=== PATIENT | male | born 1955 | race Caucasian/White ===

== ENCOUNTER 2018-01-07 06:37 | Day surgery (SDC) | payer MEDICARE ==
[2018-01-06 12:03] VITALS: BMI 25.0
[2018-01-07] MEDS ORDERED: Metoprolol Tartrate 5 MG/5 ML VIAL ONE (07:49)
--- NOTE | 2018-01-07 10:35 | OP ---
DATE OF PROCEDURE: 01/07/2018 SURGEON: Dr. Renato Montelongo PROCEDURE: Colonoscopy. PREOPERATIVE DIAGNOSIS: Colon cancer screening. PROCEDURE IN DETAIL: Informed consent was obtained from the patient. The patient was sedated with t otal intravenous anesthesia. The rectal exam was performed and was normal. The colonoscope was adva nced to the cecum where the ileocecal valve and appendiceal orifice were clearly identified. The pre paration quality was good. There was severe diverticulosis throughout the colon. The remainder of t colonic mucosa was normal. Retroflexed views in the rectum were normal. IMPRESSION: 1. Severe diverticulosis throughout the colon. 2. Otherwise normal colonoscopy. RECOMMENDATIONS: Repeat colon cancer screening in 10 years.
[2018-01-07] MEDS ORDERED: PROPOFOL 200 MG/20 ML VIAL ONE (15:32)
[2018-01-07] MEDS ORDERED: ePHEDrine/0.9% NaCl/PF SYRINGE 50 mg/10 ml ONE (15:32)
--- NOTE | 2018-01-08 06:09 | EKG ---
Test Reason : PREOP Blood Pressure : / mmHG Vent. 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
== END 2018-01-07 10:15 | disposition home or self-care (01) ==
LOC: SDC 06:37
PROVIDERS: ATTEND Internal Medicine Gastroenterology
PROC: 0DJD8ZZ Inspection of Lower Intestinal Tract, Via Natural or Artificial Opening Endoscopic (ICD-10-PCS; principal; 2018-01-07)
DX: Z12.11 Encounter for screening for malignant neoplasm of colon (principal); K57.30 Diverticulosis of large intestine without perforation or abscess without bleeding; K21.9 Gastro-esophageal reflux disease without esophagitis; G89.29 Other chronic pain; E78.5 Hyperlipidemia, unspecified; E11.9 Type 2 diabetes mellitus without complications; I50.9 Heart failure, unspecified; I25.2 Old myocardial infarction; I25.10 Atherosclerotic heart disease of native coronary artery without angina pectoris; Z88.5 Allergy status to narcotic agent; Z79.82 Long term (current) use of aspirin; Z79.84 Long term (current) use of oral hypoglycemic drugs; Z79.899 Other long term (current) drug therapy; Z98.890 Other specified postprocedural states
CPT/HCPCS: 93005; G0121; 93010; J2704

== ENCOUNTER 2018-11-04 14:04 | Emergency (ER) | payer MEDICARE ==
--- NOTE | 2018-11-04 14:56 | RAD ---
RIGHT ELBOW 4 VIEWS: Date: 11/04/18 HISTORY: Injury. 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 No evidence for acute fracture or dislocation. POS: [facility]
== END 2018-11-04 15:26 | disposition home or self-care (01) ==
LOC: ERS 14:04
DX: M77.11 Lateral epicondylitis, right elbow (principal); E11.9 Type 2 diabetes mellitus without complications; Z87.891 Personal history of nicotine dependence; Z79.82 Long term (current) use of aspirin; Z79.84 Long term (current) use of oral hypoglycemic drugs; Z79.02 Long term (current) use of antithrombotics/antiplatelets; Z79.899 Other long term (current) drug therapy

== ENCOUNTER 2019-04-29 12:11 | Emergency (ER) | payer MEDICARE ==
[2019-04-29] MEDS ORDERED: Ketorolac Tromethamine 30 MG/ML VIAL ONE (13:43)
[2019-04-29] MEDS ORDERED: Diazepam 10 MG/2 ML SYRINGE ONE (13:43)
[2019-04-29 13:50] LABS: Bilirubin Negative (Negative); Blood, Urine Negative (Negative); Clarity Clear (Clear); Glucose, Urine (Dipstick) Normal (Negative); Leukocyte Negative Leu/uL (Negative); Nitrite Negative (Negative); Protein, Urine (Dipstick) Negative (Neg-Trace); Urobilinogen Normal mg/dL (Less than 2)
== END 2019-04-29 14:30 | disposition home or self-care (01) ==
LOC: ERS 12:11
DX: M54.5 Low back pain (principal); I25.2 Old myocardial infarction; E11.9 Type 2 diabetes mellitus without complications; Z87.891 Personal history of nicotine dependence; Z79.899 Other long term (current) drug therapy; Z79.01 Long term (current) use of anticoagulants; Z79.84 Long term (current) use of oral hypoglycemic drugs
CPT/HCPCS: 81003; 96374; 96375; J1885; J3360

== ENCOUNTER 2021-07-05 09:05 | Outpatient (CLI) | payer MEDICARE | END 2021-07-05 09:06 | disposition home or self-care (01) | LOC: ULT 09:05 | PROVIDERS: ATTEND Internal Medicine Cardiovascular Disease | DX: E04.1 Nontoxic single thyroid nodule (principal) | CPT/HCPCS: 76536 ==

== ENCOUNTER 2022-04-10 08:31 | Outpatient (CLI) | payer MEDICARE | END 2022-04-10 08:32 | disposition home or self-care (01) | LOC: BICCT 08:31 | PROVIDERS: ATTEND Specialist | DX: R10.2 Pelvic and perineal pain (principal); R59.0 Localized enlarged lymph nodes; K57.30 Diverticulosis of large intestine without perforation or abscess without bleeding; I70.0 Atherosclerosis of aorta; I70.8 Atherosclerosis of other arteries | CPT/HCPCS: 74177; 82565 ==

== ENCOUNTER 2023-03-12 15:20 | Emergency (ER) | payer MEDICARE ==
[2023-03-12] MEDS ORDERED: Morphine 4 MG/ML VIAL ONE (16:28)
[2023-03-12 16:58] LABS: Bacteria/HPF None Seen HPF (None Seen); Bilirubin Negative (Negative); Blood, Urine Negative (Negative); CAUTI Indications for Culture Pelvic or flank pain; Clarity Clear (Clear); Glucose, Urine (Dipstick) Normal (Negative); Ketone, Urine Negative (Negative); Leukocyte Negative Leu/uL (Negative); Nitrite Negative (Negative); Protein, Urine (Dipstick) Negative (Neg-Trace); RBC/HPF 0-3 HPF (0-3); Specific Gravity, Urine 1.015 (1.002-1.036); Squamous Epithelial None Seen HPF (0-3); Urobilinogen Normal mg/dL (Less than 2); WBC/HPF 0-3 HPF (0-3)
[2023-03-12 17:13] LABS: Urine Culture Reflex No No
[2023-03-12] MEDS ORDERED: Ketorolac Tromethamine 30 MG/ML VIAL ONE (18:04)
== END 2023-03-12 18:58 | disposition home or self-care (01) ==
LOC: ERS 15:20
DX: M54.50 Low back pain, unspecified (principal); I10 Essential (primary) hypertension; E11.9 Type 2 diabetes mellitus without complications; Z87.891 Personal history of nicotine dependence
CPT/HCPCS: 70450; 72131; 81001; 96374; 96375; J1885; J2270

== ENCOUNTER 2023-06-19 08:54 | Outpatient (CLI) | payer MEDICARE ==
[2023-06-19] MEDS ORDERED: Magnevist 469MG/ML 20 ML VIAL ONE (12:04)
== END 2023-06-19 08:55 | disposition home or self-care (01) ==
LOC: MRI 08:54
PROVIDERS: ATTEND Neurological Surgery
DX: M47.816 Spondylosis without myelopathy or radiculopathy, lumbar region (principal); R60.0 Localized edema
CPT/HCPCS: 71046; 72100; 72158; A9579

== ENCOUNTER → 2023-06-24 | Outpatient (CLI) | payer MEDICARE | LOC: EDSTATUS 14:50 → RAD 19:57 | PROVIDERS: ATTEND Neurological Surgery | DX: M47.816 Spondylosis without myelopathy or radiculopathy, lumbar region (principal); M43.16 Spondylolisthesis, lumbar region | CPT/HCPCS: 72100 ==

== ENCOUNTER 2023-10-14 14:14 | Outpatient (CLI) | payer MEDICARE | END 2023-10-14 14:15 | disposition home or self-care (01) | LOC: BICULT 14:14 | PROVIDERS: ATTEND Internal Medicine Cardiovascular Disease | DX: E04.1 Nontoxic single thyroid nodule (principal) | CPT/HCPCS: 76536 ==

== ENCOUNTER 2024-01-13 09:33 | Observation (INO) | payer MEDICARE ==
[2024-01-13 10:28] LABS: #Basophils Less than 0.03 10x3/uL (0.0-0.2); %Basophils 0.3 % (0.0-1.0); %Eosinophils 2.4 % (0.0-10.0); %Lymphocytes 40.4 % (21.0-51.0); %Monocytes 7.2 % (0.0-10.0); %Neutrophils 49.3 % (42.0-75.0); Hematocrit 39.8 % (42.0-52.0); Hemoglobin 14.1 g/dL (14.0-18.0); Mean Corpuscular HGB CONC 35.4 g/dL (32.0-36.0); Mean Corpuscular Hemoglobin 31.5 pg (27.0-31.0); Mean Platelet Volume 10.4 fL (7.4-10.4); Platelet Count 156 10x3/uL (130-400); RBC Distribution Width 12.2 % (11.5-14.5); Red Blood Cell (RBC) Count 4.47 mill/uL (4.70-6.10)
[2024-01-13 10:52] LABS: ALT (SGPT) 16 U/L (8-55); AST (SGOT) 21 U/L (5-34); Albumin 3.8 g/dL (3.4-4.8); Alkaline Phosphatase 47 U/L (40-110); Anion Gap 13 mmol/L (10-20); BUN (Urea Nitrogen) 14 mg/dL (8.4-25.7); Bilirubin, Total 0.8 mg/dL (0.2-1.2); Calc. Creatinine Clearance 0 mL/min (70-130); Calcium 8.8 mg/dL (7.8-10.44); Carbon Dioxide 20 mmol/L (23-31); Chloride 109 mmol/L (98-107); Estimated GFR 68; Globulin 2.4 g/dL (2.4-3.5); Glucose 95 mg/dL (80-115); Lipase 15 U/L (8-78); Potassium 4.5 mmol/L (3.5-5.1); Protein, Total 6.2 g/dL (5.8-8.1); Sodium 137 mmol/L (136-145)
[2024-01-13 10:56] LABS: Troponin I Less than 0.010 ng/mL (< 0.028)
[2024-01-13] MEDS ORDERED: Aspirin Chewable 81 MG TAB ONE (11:39)
[2024-01-13] MEDS ORDERED: Nitroglycerin 0.4 MG TAB 1 EACH ONE (11:39)
[2024-01-13] MEDS ORDERED: Acetaminophen 325 MG TAB PO PRN (11:48)
[2024-01-13] MEDS ORDERED: Dextrose 50% Abboject 50 ML SYRINGE SLOW IVP PRN (11:48)
[2024-01-13] MEDS ORDERED: Dextrose 5% in Water 1,000 ML IV PRN (11:48)
[2024-01-13] MEDS ORDERED: Ondansetron ODT 4 MG TAB PO PRN (11:48)
[2024-01-13] MEDS ORDERED: Glucagon 1 MG/ML KIT IM PRN (11:48)
[2024-01-13] MEDS ORDERED: Insulin Lispro 100 UNIT/ML 10 ML VIAL SC PRN ×2 (11:48)
[2024-01-13] MEDS ORDERED: Ondansetron PF 4 MG/2 ML Vial IVP PRN (11:48)
[2024-01-13 13:26] LABS: Troponin I Less than 0.010 ng/mL (< 0.028)
[2024-01-13 15:52] LABS: Troponin I Less than 0.010 ng/mL (< 0.028)
[2024-01-13 16:57] VITALS: BMI 25.5
[2024-01-13] MEDS: Sucralfate 1 GM TAB PO SCH (17:54)
[2024-01-13] MEDS: Carvedilol 25 MG TAB PO SCH (21:08)
[2024-01-13] MEDS: Rosuvastatin 20 MG TAB PO SCH (21:09)
[2024-01-14 04:50] LABS: Hemoglobin A1c 6.7 % (4.0-6.0)
[2024-01-14 05:01] LABS: Anion Gap 13 mmol/L (10-20); BUN (Urea Nitrogen) 13 mg/dL (8.4-25.7); Calc. Creatinine Clearance 97 mL/min (70-130); Calcium 8.8 mg/dL (7.8-10.44); Carbon Dioxide 25 mmol/L (23-31); Cardiac Risk 3.9 (Less than 4.5); Chloride 106 mmol/L (98-107); Cholesterol 94 mg/dl (< 200 Desired); Estimated GFR 88; Glucose 136 mg/dL (80-115); HDL Cholesterol 24 mg/dL (>60 Neg Risk); LDL Cholesterol, Calculated 35 mg/dL; Sodium 140 mmol/L (136-145); Triglycerides 174 mg/dL (Less than 150)
[2024-01-14] MEDS: tiZANidine HCl 4 MG TAB PO PRN (08:54)
[2024-01-14] MEDS ORDERED: Clopidogrel Bisulfate 75 MG TAB PO SCH (09:00)
[2024-01-14] MEDS ORDERED: Regadenoson 0.4 MG/5 ML SYRINGE ONE (10:09)
[2024-01-14] MEDS: metFORMIN 500 MG TAB PO SCH (13:38)
[2024-01-14] MEDS: Clopidogrel Bisulfate 75 MG TAB PO SCH (13:39)
[2024-01-14] MEDS: Enoxaparin 40 MG (0.4 mL) SYRINGE SC SCH (13:39)
[2024-01-14] MEDS: Isosorbide Mononitrate 30 MG ER.TAB PO SCH (13:39)
[2024-01-14] MEDS: Aspirin Chewable 81 MG TAB PO SCH (13:39)
[2024-01-14 15:56] VITALS: BP 124/65; TEMP 97.9
[2024-01-14] MEDS ORDERED: tiZANidine HCl 4 MG TAB PO SCH (21:00)
[2024-01-15] MEDS ORDERED: glipiZIDE XL 5 mg ER.TAB PO SCH (07:30)
[2024-01-15] MEDS ORDERED: Isosorbide Mononitrate 30 MG ER.TAB PO SCH (09:00)
[2024-01-15] MEDS ORDERED: Losartan 25 MG TAB PO SCH (09:00)
[2024-01-15] MEDS ORDERED: Pantoprazole DR 40 MG TAB PO SCH (09:00)
== END 2024-01-14 18:49 | disposition home or self-care (01) ==
LOC: ERS 09:33 → ERHOLD 11:51 → 2NO 16:41
PROVIDERS: ADMIT Family Medicine; ATTEND Hospitalist
DX: R07.9 Chest pain, unspecified (principal); I25.5 Ischemic cardiomyopathy; I48.91 Unspecified atrial fibrillation; F41.9 Anxiety disorder, unspecified; I25.2 Old myocardial infarction; I10 Essential (primary) hypertension; I25.10 Atherosclerotic heart disease of native coronary artery without angina pectoris; E11.9 Type 2 diabetes mellitus without complications; M19.90 Unspecified osteoarthritis, unspecified site; H91.93 Unspecified hearing loss, bilateral; M48.00 Spinal stenosis, site unspecified; R10.32 Left lower quadrant pain; R19.7 Diarrhea, unspecified; G89.29 Other chronic pain; Z92.89 Personal history of other medical treatment; Z95.1 Presence of aortocoronary bypass graft; Z98.890 Other specified postprocedural states; Z79.84 Long term (current) use of oral hypoglycemic drugs; Z79.899 Other long term (current) drug therapy; Z79.82 Long term (current) use of aspirin; Z87.19 Personal history of other diseases of the digestive system; Z88.5 Allergy status to narcotic agent; Z87.891 Personal history of nicotine dependence
CPT/HCPCS: 71045; 78452; 80048; 80053; 80061; 82962 ×2; 83036; 83690; 83880; 84484 ×2; 85025; 85379; 93005; 93017; 99285; A9502; J2785 ×2; 36415; 36416; G0378

== ENCOUNTER 2025-04-04 07:38 | Observation (INO) | payer MEDICARE ==
[2025-04-04 08:03] LABS: #Basophils 0.03 10x3/uL (0.0-0.2); #Eosinophils 0.17 10x3/uL (0.0-0.7); #Monocytes 0.59 10x3/uL (0.11-0.59); #Neutrophils 4.18 10x3/uL (1.40-6.50); %Basophils 0.4 % (0.0-1.0); %Eosinophils 2.3 % (0.0-10.0); %Lymphocytes 31.5 % (21.0-51.0); %Monocytes 8.1 % (0.0-10.0); %Neutrophils 57.4 % (42.0-75.0); Hematocrit 39.2 % (42.0-52.0); Hemoglobin 13.9 g/dL (14.0-18.0); Mean Corpuscular Hemoglobin 31.0 pg (27.0-31.0); Mean Corpuscular Volume 87.5 fL (78.0-98.0); Platelet Count 144 10x3/uL (130-400); Red Blood Cell (RBC) Count 4.48 mill/uL (4.70-6.10); White Blood Cell (WBC) Count 7.28 10x3/uL (4.8-10.8)
[2025-04-04 08:25] LABS: ALT (SGPT) 9 U/L (Less than 45); AST (SGOT) 15 U/L (11-34); Albumin 3.9 g/dL (3.1-4.5); Alkaline Phosphatase 50 U/L (40-110); Anion Gap 13 mmol/L (10-20); BUN (Urea Nitrogen) 10 mg/dL (8.4-25.7); Bilirubin, Total 0.7 mg/dL (0.3-1.2); Calc. Creatinine Clearance 0 mL/min (70-130); Calcium 8.7 mg/dL (7.8-10.44); Carbon Dioxide 24 mmol/L (23-31); Chloride 106 mmol/L (98-107); Globulin 2.3 g/dL (2.4-3.5); Glucose 165 mg/dL (83-110); Potassium 4.0 mmol/L (3.5-5.1); Sodium 139 mmol/L (136-145)
[2025-04-04 08:31] LABS: INR-International Normal Ratio 1.0; PTT 30.1 sec (22.9-36.1); Prothrombin Time 13.0 sec (12.0-14.7)
[2025-04-04] MEDS ORDERED: Aspirin Chewable 81 MG TAB ONE (09:23)
[2025-04-04] MEDS ORDERED: Glucagon 1 MG/ML KIT IM PRN (10:09)
[2025-04-04] MEDS ORDERED: Ondansetron PF 4 MG/2 ML Vial IVP PRN (10:09)
[2025-04-04] MEDS ORDERED: Acetaminophen 325 MG TAB PO PRN (10:09)
[2025-04-04] MEDS ORDERED: Dextrose 50% Abboject 50 ML SYRINGE SLOW IVP PRN (10:09)
[2025-04-04] MEDS ORDERED: Iopamidol-370 76% 500 ML MDV (1 ML CHARGE) ONE (11:43)
[2025-04-04 12:06] LABS: Cardiac Risk 3.2 (Less than 4.5); Cholesterol 82.0 mg/dl (< 200 Desired); HDL Cholesterol 26.0 mg/dL (>60 Neg Risk); LDL Cholesterol, Calculated 23.0 mg/dL; Triglycerides 165.0 mg/dL (Less than 150)
[2025-04-04 15:43] VITALS: BMI 25.5
[2025-04-04] MEDS: Carvedilol 25 MG TAB PO SCH (16:18)
[2025-04-04] MEDS: Rosuvastatin 20 MG TAB PO SCH (20:16)
[2025-04-05 04:04] LABS: #Basophils Less than 0.03 10x3/uL (0.0-0.2); #Eosinophils 0.17 10x3/uL (0.0-0.7); #Monocytes 0.51 10x3/uL (0.11-0.59); #Neutrophils 3.31 10x3/uL (1.40-6.50); %Basophils 0.3 % (0.0-1.0); %Eosinophils 2.8 % (0.0-10.0); %Lymphocytes 34.7 % (21.0-51.0); %Monocytes 8.3 % (0.0-10.0); %Neutrophils 53.7 % (42.0-75.0); Hematocrit 37.9 % (42.0-52.0); Hemoglobin 13.3 g/dL (14.0-18.0); Mean Corpuscular Hemoglobin 31.4 pg (27.0-31.0); Mean Corpuscular Volume 89.6 fL (78.0-98.0); Platelet Count 132 10x3/uL (130-400); Red Blood Cell (RBC) Count 4.23 mill/uL (4.70-6.10); White Blood Cell (WBC) Count 6.16 10x3/uL (4.8-10.8)
[2025-04-05 04:25] LABS: Anion Gap 13 mmol/L (10-20); BUN (Urea Nitrogen) 10 mg/dL (8.4-25.7); Calc. Creatinine Clearance 98 mL/min (70-130); Calcium 8.4 mg/dL (7.8-10.44); Carbon Dioxide 24 mmol/L (23-31); Chloride 104 mmol/L (98-107); Glucose 138 mg/dL (83-110); Potassium 3.7 mmol/L (3.5-5.1); Sodium 137 mmol/L (136-145)
[2025-04-05] MEDS: Losartan 25 MG TAB PO SCH (09:09)
[2025-04-05] MEDS: Enoxaparin 40 MG (0.4 mL) SYRINGE SC SCH (09:09)
[2025-04-05] MEDS: Aspirin 81 mg Enteric Coated Tablet PO SCH (09:10)
[2025-04-05] MEDS: Isosorbide Mononitrate 60 MG ER.TAB PO SCH (09:10)
[2025-04-05 12:26] VITALS: BP 125/77; TEMP 98
[2025-04-06] MEDS ORDERED: Pantoprazole 40 MG DR.TAB PO SCH (09:00)
[2025-04-06] MEDS ORDERED: Ezetimibe 10 MG TAB PO SCH (09:00)
== END 2025-04-05 14:33 | disposition home or self-care (01) ==
LOC: ERS 07:38 → ERHOLD 09:38 → 2SE 15:26
PROVIDERS: ADMIT Internal Medicine; ATTEND Internal Medicine
DX: R20.0 Anesthesia of skin (principal); R47.81 Slurred speech; I25.10 Atherosclerotic heart disease of native coronary artery without angina pectoris; I50.22 Chronic systolic (congestive) heart failure; E78.1 Pure hyperglyceridemia; I25.5 Ischemic cardiomyopathy; E11.9 Type 2 diabetes mellitus without complications; Z88.5 Allergy status to narcotic agent; Z88.8 Allergy status to other drugs, medicaments and biological substances; Z95.1 Presence of aortocoronary bypass graft; Z79.84 Long term (current) use of oral hypoglycemic drugs; Z79.02 Long term (current) use of antithrombotics/antiplatelets; Z79.82 Long term (current) use of aspirin; Z79.899 Other long term (current) drug therapy
CPT/HCPCS: 36415; 36416; 70450; 70496; 70498; 71045; 76014; 80048; 80053; 80061; 83036; 84484; 85025; 85610; 85730; 93005; G0378; Q9967

== ENCOUNTER 2025-04-19 02:24 | Emergency (ER) | payer MEDICARE ==
[2025-04-19 03:12] LABS: #Basophils 0.03 10x3/uL (0.0-0.2); #Eosinophils 0.18 10x3/uL (0.0-0.7); #Monocytes 0.69 10x3/uL (0.11-0.59); #Neutrophils 5.16 10x3/uL (1.40-6.50); %Basophils 0.4 % (0.0-1.0); %Eosinophils 2.1 % (0.0-10.0); %Lymphocytes 27.2 % (21.0-51.0); %Monocytes 8.2 % (0.0-10.0); %Neutrophils 61.6 % (42.0-75.0); Hematocrit 41.5 % (42.0-52.0); Hemoglobin 14.0 g/dL (14.0-18.0); Mean Corpuscular Hemoglobin 30.9 pg (27.0-31.0); Mean Corpuscular Volume 91.6 fL (78.0-98.0); Platelet Count 154 10x3/uL (130-400); Red Blood Cell (RBC) Count 4.53 mill/uL (4.70-6.10); White Blood Cell (WBC) Count 8.38 10x3/uL (4.8-10.8)
[2025-04-19 03:16] LABS: Bacteria/HPF None Seen HPF (None Seen); CAUTI Indications for Culture Pelvic or flank pain; Glucose, Urine (Dipstick) Greater than 1000 mg/dL (Negative); Leukocyte Negative Leu/uL (Negative); Protein, Urine (Dipstick) 10 mg/dL (Neg-Trace); RBC/HPF 0-3 HPF (0-3); Specific Gravity, Urine 1.028 (1.002-1.036); WBC/HPF 0-3 HPF (0-3)
[2025-04-19 03:17] LABS: Urine Culture Reflex No No
[2025-04-19 03:26] LABS: ALT (SGPT) 12 U/L (Less than 45); AST (SGOT) 17 U/L (11-34); Albumin 3.8 g/dL (3.1-4.5); Alkaline Phosphatase 42 U/L (40-110); Anion Gap 14 mmol/L (10-20); BUN (Urea Nitrogen) 10 mg/dL (8.4-25.7); Bilirubin, Total 0.3 mg/dL (0.3-1.2); Calc. Creatinine Clearance 0 mL/min (70-130); Calcium 8.7 mg/dL (7.8-10.44); Carbon Dioxide 24 mmol/L (23-31); Chloride 108 mmol/L (98-107); Globulin 2.6 g/dL (2.4-3.5); Glucose 169 mg/dL (83-110); Potassium 4.2 mmol/L (3.5-5.1); Sodium 142 mmol/L (136-145)
[2025-04-19] MEDS ORDERED: Cephalexin 250 MG CAP ONE (06:06)
== END 2025-04-19 06:21 | disposition home or self-care (01) ==
LOC: ERS 02:24
DX: N39.0 Urinary tract infection, site not specified (principal); K52.9 Noninfective gastroenteritis and colitis, unspecified; K59.00 Constipation, unspecified; E11.9 Type 2 diabetes mellitus without complications; I50.9 Heart failure, unspecified; I25.2 Old myocardial infarction
CPT/HCPCS: 74177; 80053; 81001; 83605; 85025; J2270; 96374; 96375